=== PATIENT | female | born 1950 | race Caucasian/White ===

== ENCOUNTER → 2016-10-10 | Outpatient (CLI) | payer OTHER, MEDICARE ==
[2016-10-10 13:17] LABS: BLOOD UREA NITROGEN 28 mg/dl (7-18); BUN/CREATININE RATIO 23.6 (10-20); CALCIUM 9.6 mg/dl (8.5-10.1); CARBON DIOXIDE 29 mmol/L (21-32); CHLORIDE 103 mmol/L (98-107); GLUCOSE 119 mg/dl (70-99); POTASSIUM 3.7 mmol/L (3.5-5.1); SODIUM 142 mmol/L (136-145)
[2016-10-10 13:20] LABS: CHOLESTEROL 157 mg/dl (0-200); CHOLESTEROL/HDL RATIO 2.8; HDL CHOLESTEROL 57 mg/dl; TRIGLYCERIDES 207 mg/dl (0-150); VERY LOW DENSITY LIPOPROT CALC 41 mg/dl
[2016-10-10 13:23] LABS: ESTIMATED AVERAGE GLUCOSE 123 mg/dl; HA1C FLAG Normal (Normal)
== END | disposition home or self-care (01) ==
LOC: C.LABSPEC 12:43
PROVIDERS: ATTEND Internal Medicine
DX: Z00.00 Encounter for general adult medical examination without abnormal findings (principal); I10 Essential (primary) hypertension; E11.9 Type 2 diabetes mellitus without complications; E78.5 Hyperlipidemia, unspecified

== ENCOUNTER → 2016-10-12 | Outpatient (CLI) | payer OTHER, MEDICARE | END | disposition home or self-care (01) | LOC: C.PAPS 13:51 | PROVIDERS: ATTEND Internal Medicine | DX: Z12.4 Encounter for screening for malignant neoplasm of cervix (principal) ==

== ENCOUNTER → 2016-10-19 | Outpatient (CLI) | payer OTHER, MEDICARE ==
--- NOTE | 2016-10-19 12:43 | MAMMOGRAPHY REPORT ---
BILATERAL DIGITAL SCREENING MAMMOGRAM WITH CAD: 10/19/2016 CLINICAL HISTORY: Routine screening. Patient has no complaints. TECHNIQUE: Current study was also evaluated with a Computer Aided Detection (CAD) system. Bilatera l CC and MLO views were obtained. COMPARISON: Comparison is made to exams dated: 04/14/2015 mammogram, 04/07/2013 mammogram, 04/13/2014 m ammogram, 04/04/2012 mammogram, 04/03/2011 mammogram, and 03/30/2010 mammogram - [facility]. BREAST COMPOSITION: The tissue of both breasts is almost entirely fatty. FINDINGS: No suspicious masses, calcifications, or areas of architectural distortion are noted in e ither breast. There has been no significant interval change compared to prior exams. IMPRESSION: ACR BI-RADS CATEGORY 1: NEGATIVE There is no mammographic evidence of malignancy. A 1 year screening mammogram is recommended. The p atient will receive written notification of the results. Approximately 10% of breast cancers are not detected with mammography. A negative mammographic repor t should not delay biopsy if a clinically suggestive mass is present. Carey Batres M.D. ah/:10/19/2016 11:54:57 Night Clerk Auditor: Gabriella REEVES(Tacho)(M), [facility] letter sent: Normal 1/2 BI-RADS Code: ACR BI-RADS Category 1: Negative
== END | disposition home or self-care (01) ==
LOC: C.MAMM 10:16
PROVIDERS: ATTEND Internal Medicine
DX: Z12.31 Encounter for screening mammogram for malignant neoplasm of breast (principal)

== ENCOUNTER → 2016-10-20 | Outpatient (CLI) | payer OTHER, MEDICARE | END | disposition home or self-care (01) | LOC: C.LABSPEC 12:29 | PROVIDERS: ATTEND Internal Medicine | DX: Z12.11 Encounter for screening for malignant neoplasm of colon (principal) ==

== ENCOUNTER → 2017-02-13 | Outpatient (CLI) | payer OTHER, MEDICARE | END | disposition home or self-care (01) | LOC: C.PATHSPEC 15:22 | PROVIDERS: ATTEND Internal Medicine | DX: C44.629 Squamous cell carcinoma of skin of left upper limb, including shoulder (principal) ==

== ENCOUNTER → 2017-02-26 | Outpatient (CLI) | payer OTHER, MEDICARE | END | disposition home or self-care (01) | LOC: C.PATHSPEC 13:30 | PROVIDERS: ATTEND Internal Medicine | DX: L57.0 Actinic keratosis (principal) ==

== ENCOUNTER → 2017-04-08 | Outpatient (CLI) | payer OTHER, MEDICARE ==
[2017-04-08 13:25] LABS: BLOOD UREA NITROGEN 21 mg/dl (7-18); BUN/CREATININE RATIO 17.4 (10-20); CALCIUM 9.3 mg/dl (8.5-10.1); CARBON DIOXIDE 26 mmol/L (21-32); CHLORIDE 106 mmol/L (98-107); CHOLESTEROL 129 mg/dl (0-200); POTASSIUM 4.2 mmol/L (3.5-5.1); SODIUM 141 mmol/L (136-145)
[2017-04-08 13:31] LABS: CHOLESTEROL/HDL RATIO 2.4; ESTIMATED AVERAGE GLUCOSE 120 mg/dl; GLUCOSE 115 mg/dl (70-99); HA1C FLAG Normal (Normal); HDL CHOLESTEROL 53 mg/dl; TRIGLYCERIDES 130 mg/dl (0-150); VERY LOW DENSITY LIPOPROT CALC 26 mg/dl
== END | disposition home or self-care (01) ==
LOC: C.LABSPEC 12:25
PROVIDERS: ATTEND Internal Medicine
DX: E11.9 Type 2 diabetes mellitus without complications (principal); I10 Essential (primary) hypertension; E78.5 Hyperlipidemia, unspecified

== ENCOUNTER → 2017-06-12 | Outpatient (CLI) | payer OTHER, MEDICARE ==
[2017-06-12 19:15] LABS: BASO % 0.2 %; BASO ABS # 0.02 K/uL (0-0.2); COMPLETE YES; EOS % 0.4 %; IG% 0.2 %; LYMPH % 15.5 %; LYMPH ABS # 1.32 K/uL (1.2-3.4); MEAN CELL VOLUME 90.7 fL (80-100); MEAN CORPUSCULAR HEMOGLOBIN 30.6 pg (25-34); MEAN CORPUSCULAR HGB CONC 33.8 g/dl (32-36); MEAN PLATELET VOLUME 11.5 fL (7.4-10.4); MONO % 6.3 %; NEUT % 77.4 %; PLATELET COUNT 271 K/uL (130-400); RED BLOOD COUNT 4.08 M/uL (4.2-5.4); WHITE BLOOD COUNT 8.54 K/uL (4.8-10.8)
== END | disposition home or self-care (01) ==
LOC: C.LABSPEC 18:01
PROVIDERS: ATTEND Internal Medicine
DX: M10.9 Gout, unspecified (principal)

== ENCOUNTER → 2017-07-16 | Outpatient (CLI) | payer OTHER, MEDICARE ==
--- NOTE | 2017-07-16 15:44 | DIAGNOSTIC IMAGING REPORT ---
L FOOT MIN 3 VIEWS ROUTINE CLINICAL HISTORY: LEFT FOOT PAIN COMPARISON: None. DISCUSSION: There is a plantar calcaneal spur. There is a small spur arising from the dorsal aspect of the navicular. No acute fractures are visualized. There are degenerative changes the level the first metatarsal phalangeal joint. There is medial soft tissue swelling at the level the joint. There is mild diffuse soft tissue edema. IMPRESSION: 1. No acute fractures 2. Mild degenerative change 3. No evidence of erosive disease Electronically signed by: Zurdo Mckeon M.D. 07/16/2017 3:42 PM Dictated Date/Time: 07/16/2017 3:41 PM
== END | disposition home or self-care (01) ==
LOC: C.RAD 14:36
PROVIDERS: ATTEND Internal Medicine
DX: M19.90 Unspecified osteoarthritis, unspecified site (principal); M10.9 Gout, unspecified

== ENCOUNTER → 2017-10-18 | Outpatient (CLI) | payer OTHER, MEDICARE ==
[2017-10-18 13:43] LABS: HEMOGLOBIN A1C 5.8 % (4.5-5.6)
[2017-10-18 16:02] LABS: BLOOD UREA NITROGEN 37 mg/dl (7-18); CALCIUM 9.2 mg/dl (8.5-10.1); CARBON DIOXIDE 27 mmol/L (21-32); CHOLESTEROL 152 mg/dl (0-200); CREATININE 1.29 mg/dl (0.60-1.20); GLUCOSE 130 mg/dl (70-99); POTASSIUM 3.9 mmol/L (3.5-5.1); SODIUM 139 mmol/L (136-145)
[2017-10-18 16:05] LABS: LDL CHOLESTEROL (DIRECT) 88 mg/dl
== END | disposition home or self-care (01) ==
LOC: C.LABSPEC 12:30
PROVIDERS: ATTEND Internal Medicine
DX: Z00.00 Encounter for general adult medical examination without abnormal findings (principal); E11.9 Type 2 diabetes mellitus without complications; E78.5 Hyperlipidemia, unspecified; I10 Essential (primary) hypertension

== ENCOUNTER → 2017-10-25 | Outpatient (CLI) | payer OTHER, MEDICARE ==
--- NOTE | 2017-10-25 13:24 | MAMMOGRAPHY REPORT ---
BILATERAL DIGITAL SCREENING MAMMOGRAM TOMOSYNTHESIS WITH CAD: 10/25/2017 CLINICAL HISTORY: Routine screening. Patient has no complaints. TECHNIQUE: Breast tomosynthesis in addition to standard 2D mammography was performed. Current study was also evaluated with a Computer Aided Detection (CAD) system. COMPARISON: Comparison is made to exams dated: 10/19/2016 mammogram, 04/14/2015 mammogram, 04/13/2014 m ammogram, 04/07/2013 mammogram, 04/04/2012 mammogram, and 04/03/2011 mammogram - [facility] er. BREAST COMPOSITION: The tissue of both breasts is almost entirely fatty. FINDINGS: No suspicious masses, calcifications, or areas of architectural distortion are noted in ei ther breast. There has been no significant interval change compared to prior exams. IMPRESSION: ACR BI-RADS CATEGORY 1: NEGATIVE There is no mammographic evidence of malignancy. A 1 year screening mammogram is recommended. The pa tient will receive written notification of the results. Approximately 10% of breast cancers are not detected with mammography. A negative mammographic report should not delay biopsy if a clinically suggestive mass is present. Carey Batres M.D. /:10/25/2017 11:50:47 [employer] Cook: Bailey REEVES(Tacho)(M), [facility] letter sent: Normal 1/2 BI-RADS Code: ACR BI-RADS Category 1: Negative
== END | disposition home or self-care (01) ==
LOC: C.MAMM 08:44
PROVIDERS: ATTEND Internal Medicine
DX: Z12.31 Encounter for screening mammogram for malignant neoplasm of breast (principal)

== ENCOUNTER → 2017-10-30 | Outpatient (CLI) | payer OTHER, MEDICARE ==
[2017-11-11 13:35] LABS: FECAL OCCULT BLOOD #1 NEGATIVE (NEGATIVE); FECAL OCCULT BLOOD #2 NEGATIVE (NEGATIVE); FECAL OCCULT BLOOD #3 NEGATIVE (NEGATIVE)
== END | disposition home or self-care (01) ==
LOC: C.LABSPEC 12:47
PROVIDERS: ATTEND Internal Medicine
DX: Z12.11 Encounter for screening for malignant neoplasm of colon (principal)

== ENCOUNTER → 2018-04-18 | Outpatient (CLI) | payer OTHER, MEDICARE ==
[2018-04-18 13:19] LABS: HEMOGLOBIN A1C 6.1 % (4.5-5.6)
[2018-04-18 13:28] LABS: BLOOD UREA NITROGEN 45 mg/dl (7-18); CARBON DIOXIDE 25 mmol/L (21-32); CHOLESTEROL 149 mg/dl (0-200); GLUCOSE 121 mg/dl (70-99); LDL CHOLESTEROL (DIRECT) 82 mg/dl; POTASSIUM 3.7 mmol/L (3.5-5.1); SODIUM 140 mmol/L (136-145)
== END | disposition home or self-care (01) ==
LOC: C.LABSPEC 12:42
PROVIDERS: ATTEND Internal Medicine
DX: E11.9 Type 2 diabetes mellitus without complications (principal); I10 Essential (primary) hypertension; R78.5 Finding of other psychotropic drug in blood

== ENCOUNTER 2024-03-23 17:20 | Inpatient (IN) ==
--- NOTE | 2024-03-23 17:44 | ED Triage Note ---
Date of Service March 23, 2024 Provider in Triage Author: Juan Antonio Chacon. History of Present Illness This patient was briefly evaluated while in triage. An abbreviated physical exam was performed. This patient is a 73-year-old Female who presents to the ED for evaluation of pain redness swelling to her left lower leg and inner thigh. concerned about cellulitis. Had derm procedure on this leg 2 weeks ago. no recent car trips, no thinners, no history of dvt or PE. no fevers but doesn't feel right today. Physical Exam CONSTITUTIONAL: in no acute pain or distress, resting comfortably SKIN: pink, warm, dry RESPIRATORY: in no respiratory distress MSK: left lower leg erythematous and edematous. skin color changes to left inner thigh with tenderness Initial orders for labs and / or imaging were placed and patient was placed in the waiting area until a bed is available. Please see further documentation for the full ED course.
[2024-03-23] MEDS: ACETAMINOPHEN 500 MG TAB PO STA (18:31)
[2024-03-23 19:00] LABS: Basophils # (auto) 0.02 K/uL (0.00-0.20); Basophils % (auto) 0.2 %; Eosinophils # (auto) 0.02 K/uL (0.00-0.50); Eosinophils % (auto) 0.2 %; Hematocrit (blood only) 40.6 % (37.0-47.0); Hemoglobin 13.6 g/dl (12.0-16.0); Immature Granulocytes # (auto) 0.07 K/uL (0.01-0.20); Immature Granulocytes % (auto) 0.6 %; Lymphocytes # (auto) 1.41 K/uL (1.20-3.40); Lymphocytes % (auto) 11.6 %; Mean Corpuscular Hgb Conc 33.5 g/dL (32.0-36.0); Mean Corpuscular Volume 89.6 fL (80.0-100.0); Mean Platelet Volume 10.9 fL (9.4-12.4); Monocytes # (auto) 0.62 K/uL (0.11-0.59); Monocytes % (auto) 5.1 %; Neutrophils # (auto) 10.02 K/uL (1.40-6.50); Neutrophils % (auto) 82.3 %; Platelet Count 192 K/uL (130-400); RDW Coefficient of Variation 12.6 % (11.5-14.5); RDW Standard Deviation 41.1 fL (36.4-46.3); Red Blood Count 4.53 M/uL (4.20-5.40); White Blood Count 12.16 K/ul (4.8-10.8)
[2024-03-23 19:11] LABS: Albumin Globulin Ratio 1.1 (0.9-2); Albumin Level 4.4 gm/dl (3.4-5.0); BUN Creatinine Ratio 18.9 (10-20); Bilirubin,Total 0.7 mg/dl (0.2-1.0); Calcium 10.3 mg/dl (8.6-10.3); Creatinine Clr Calc Pharmacy 21.5 ml/min; Est GFR (African American) 23.7 ml/min; Est GFR (Non-African American) 20.5 ml/min; Potassium 4.3 mmol/L (3.5-5.1); Total Protein 8.4 gm/dl (6.0-8.3)
--- NOTE | 2024-03-23 21:24 | Emergency Department Note ---
Impression & Plan Cellulitis of left lower extremity, Acute kidney injury superimposed on CKD ED Provider Note CHIEF COMPLAINT: Rash HISTORY OF PRESENTING ILLNESS: This 73-year-old female patient presents to the emergency department with her for evaluation of pain, swelling, and a rash on the left leg. Symptoms started yesterday morning and have gotten progressively worse. The symptoms started around the ankle and now travels up to the thigh area. No symptoms of the right leg. The patient is concerned for cellulitis. She denies any fevers or chills, but states that she just does not feel right. The patient states that she did have some trouble walking last night from the swelling, but was walking OK today. The patient had dermatology work completed in the area about 2 weeks ago with previous scabs in the area. She states that some areas of squamous cell carcinoma were frozen. The patient denies recent long car or plane rides or recent injury/trauma/surgery. Denies any personal history of blood clots or bleeding disorders. Denies any family history of blood clots or bleeding disorders. Denies any hormonal medication use. Denies any hemoptysis. Denies chest pain or SOB. The patient is a diabetic. REVIEW OF SYSTEMS: See HPI for pertinent positives and pertinent negatives. ALLERGIES: Ampicillin, Penicillin MEDICATIONS: See below PAST MEDICAL HISTORY: See below PHYSICAL EXAM: VITALS: Vitals are noted on the nurse's note and reviewed by myself. GENERAL: Non toxic, no acute distress, non-diaphoretic. SKIN: The patient has significant erythema, edema, and warmth to the left lower extremity worse in the area of the foot and lower leg. However, there is a small area to the left inner thigh as well. The patient has some scabbing from her previous cryotherapy for her squamous cell carcinoma. No fluctuance, induration, pointing, or discharge. The patient is tender to palpation over this area. No erythema, edema, warmth, or concerning lesions to the right lower extremity. Capillary refill <2 sec. EYES: PERRLA. EOMI. Conjunctivae without injection, sclerae without icterus. NOSE: Patent without discharge. MOUTH: Mucous membranes moist. Uvula midline. Airway patent. NECK: Supple without nuchal rigidity. HEART: Regular rate and rhythm without murmurs gallops or rubs. LUNGS: Clear to auscultation bilaterally without wheezes, rales or rhonchi. No retractions or accessory muscle use. ABDOMEN: Positive bowel sounds x 4. Normal tympanic percussion. Soft, nontender. No masses or organomegaly. Carrion sign negative. No guarding or rebound tenderness. No focal RLQ or LLQ tenderness. MUSCULOSKELETAL: See skin exam. Peripheral pulses 2+ and equal in the bilateral lower extremities. NEURO: Patient was alert and oriented. Normal sensation to light and sharp touch of the bilateral lower extremities. No focal neurological deficits. DIFFERENTIAL DIAGNOSIS: Differential diagnosis includes cellulitis, abscess, sepsis, DVT, SVT, rhabdomyolysis, compartment syndrome, or others. ED COURSE AND MEDICAL DECISION MAKING: MEDICATIONS GIVEN: Tylenol 1000 mg p.o. 1.5 L normal saline solution bolus. Cefepime 2 g IV. Daptomycin 250 mg IV. INTERPRETATION OF LABS: I interpreted the labs with full lab results as below in the lab section of this note. White blood cell count elevated at 12.16. Hemoglobin normal at 13.6. Platelet count normal at 192. Coags were normal. Sodium 133, BUN 43, creatinine 2.28, and glucose 194. CMP otherwise without significant abnormalities. Procalcitonin elevated at 12.10, but lactate normal at 1.7. However, there was a delay in drawing the lactate compared to the procalcitonin. Blood cultures are pending. INTERPRETATION OF IMAGING: Imaging studies were interpreted by myself and read by radiology as per the imaging section of this note. Venous Doppler of the left lower extremity was negative for DVT or other acute abnormalities. CONSULTATIONS: On-call hospitalist MDM SUMMARY: The patient was seen during a time of extreme volume and extreme acuity. Nursing triage protocols were initiated with IV lock, labs, and/or imaging studies conducted by protocol in the triage area. The patient was examined by myself once they were taken back to an exam room. The patient presented with redness, swelling, and pain at the left lower extremity since yesterday. The patient states that she had areas of squamous cell carcinoma to the left lower extremity frozen by dermatology approximately 2 weeks ago. The patient had some scabbing over these areas prior to the redness and swelling starting. She has not had any fevers. She is a diabetic. At the time of my exam, the patient's white blood cell count was elevated at 12.16, her procalcitonin level is elevated at 12.10, and she appears to have a concerning cellulitis to the left lower extremity. The patient appears to have an acute on chronic renal injury as well. At the time of my exam, I ordered a lactate and blood cultures and started the patient on 1.5 L of normal saline solution. She was also given cefepime 2 g IV as well as daptomycin 250 mg IV. Venous Doppler of the left lower extremity was negative for DVT or other acute abnormalities. The patient was independently evaluated by Dr. Coffman, who agrees with my assessment and treatment plan. We feel the patient requires admission for further evaluation and treatment of her cellulitis. I spoke with the on-call hospitalist who agreed to admit the patient for further management. Please refer to their dictation for further details. The patient's care was transferred in stable condition. DIAGNOSIS: Cellulitis of left lower extremity Acute on chronic renal injury Attending Attestation: I Haresh Coffman MD independently saw and evaluated this patient and agree with history and physical is otherwise documented by the physician car rental sales assistant. See their note for full details. Cellulitic LLE with procal of 12. IV abx ordered. DVT study negative. Hospitalist to admit. Past Med/Surg History Problem List (Updated 03/24/24 @ 05:33 by Kathy Hdz PA-C) Acute kidney injury superimposed on CKD (Acute) Cellulitis of left lower extremity (Acute) Lichen sclerosus Vitamin D deficiency Hyperkalemia Hypothyroidism Gout Cystocele with prolapse Hypertension Anxiety Type 2 diabetes mellitus with chronic kidney disease, without long-term current use of insulin History of colon polyps Squamous cell carcinoma Primary hypertension Cholelithiasis Arthritis Back problem Gout High cholesterol Spinal stenosis Degenerative disc disease Cholelithiasis Stage 3a chronic kidney disease (CKD) Mixed conductive and sensorineural hearing loss of right ear with restricted hearing of left ear Medical History History of endometrial cancer History of COVID-19 Hyperlipidemia DDD (degenerative disc disease) Spinal stenosis Osteoarthritis Surgical History History of biopsy (10/24/22) History of cataract extraction with lens replacement Hx laparoscopic cholecystectomy (12/27/20) H/O squamous cell carcinoma excision History of tooth extraction H/O colonoscopy (2016) H/O thumb surgery History of hysterectomy History of tubal ligation Family History Mother Hypertension Cardiac disorder Stroke Diabetes Heart disease Myocardial infarction Brother Cancer Father Cancer Diabetes Prostate cancer Son Diabetes Denies family history of Ovarian cancer Breast cancer Lung cancer Colorectal cancer Social History Smoking Status: Never smoker Second Hand Exposure: No; Do You Dip or Chew Tobacco: No; Hx Alcohol Use: No Hx Substance Use: No Preferred Language: Slovenian Communication Ability: Effective Visual Impairment: Limited Hearing Ability: Normal Mat Man Required: No Beliefs That Will Affect Care: None marital status: Current Living Situation: Spouse current occupational status: retired How many Children do You have: 2 Feels Safe at Home: Yes Childhood Exposure to Second-Hand Smoke: No Diet: regular caffeine: Yes Dental Care, Regularly: No Physical Activity Frequency: Does not Exercise Seatbelt Use: always Sunscreen Use: Yes Assistive Devices: Denture - Upper, Denture - Lower and Glasses Allergies Allergies Allergy/AdvReac Type Severity Reaction Status Date / Time ampicillin Allergy Mild Rash Verified 03/17/24 10:21 Penicillins Allergy Mild RASH Verified 03/17/24 10:21 Home Meds Home Medications Medication Instructions Recorded Confirmed magnesium oxide 400 mg (241.3 mg 400 mg PO HS 12/16/20 03/23/24 magnesium) tablet docusate sodium 100 mg capsule 200 mg PO BID 12/19/20 03/23/24 spironolactone 25 mg tablet 25 mg PO DAILY 03/17/24 03/23/24 furosemide 20 mg tablet 20 mg PO QAM 03/23/24 03/23/24 trazodone 50 mg tablet 25 mg PO HS 03/23/24 03/23/24 Previous Rx's Medication Instructions Recorded fluorouracil 5 % topical cream 1 applic topical DAILY 4 weeks #40 02/14/23 (Efudex) grams fenofibrate nanocrystallized 48 mg 48 mg PO QAM #90 tabs 06/13/23 tablet glipizide 2.5 mg tablet, extended 2.5 mg PO DAILY #90 tabs 06/13/23 release 24 hr levothyroxine 50 mcg tablet 50 mcg PO DAILY #90 tabs 06/13/23 paroxetine HCl 10 mg tablet 10 mg PO QAM #90 tabs 09/27/23 allopurinol 100 mg tablet 100 mg PO QAM #90 tabs 01/13/24 rosuvastatin 40 mg tablet 40 mg PO HS #90 tabs 01/13/24 empagliflozin 10 mg tablet 10 mg PO DAILY #90 tabs 02/28/24 (Jardiance) clobetasol 0.05 % topical ointment 1 applic topical BID #30 grams 03/03/24 atenolol 25 mg tablet 25 mg PO BID #60 tabs 03/17/24 diltiazem HCl 360 mg capsule,24 360 mg PO DAILY #30 caps 03/17/24 hr,extended release Results & Data (ED) Vital Signs Vital Signs - 24 hr 03/23/24 17:38 03/23/24 22:26 03/23/24 22:58 Temperature 36.9 C 37.0 C Temperature Source Temporal Artery Scan Oral Pulse Rate 81 61 Pulse Rate [Apical] 63 Pulse Rhythm Regular Pulse Rhythm [Apical] Regular Pulse Strength Normal Pulse Strength [Apical] Normal Respiratory Rate 18 17 Respiratory Effort / Characteristics Non-Labored Non-Labored Spontaneous Respiratory Depth Normal Normal Respiratory Pattern Regular Regular Blood Pressure 150/75 H Blood Pressure [Right Arm] 142/57 H Blood Pressure Mean 100 Blood Pressure Mean [Right Arm] 85 Blood Pressure Position Sitting Blood Pressure Position [Right Arm] Semi-fowlers Pulse Oximetry 98 97 Oxygen Delivery Method Room Air Room Air Sepsis Recent Fever Within 48 Hours No Sepsis New/Unexplained Change in Mental Status No Sepsis Action Taken by Nursing No Action Required Laboratory Data 03/24/24 04:07 03/24/24 04:07 Lab Results 03/23/24 03/23/24 Range/Units 18:37 22:35 WBC 12.16 H (4.8-10.8) K/ul RBC 4.53 (4.20-5.40) M/uL Hgb 13.6 (12.0-16.0) g/dl Hct 40.6 (37.0-47.0) % MCV 89.6 (80.0-100.0) fL MCH 30.0 (25.0-34.0) pg MCHC 33.5 (32.0-36.0) g/dL RDW Std Deviation 41.1 (36.4-46.3) fL RDW Coeff of [place] 12.6 (11.5-14.5) % Plt Count 192 (130-400) K/uL MPV 10.9 (9.4-12.4) fL Immature Gran % (Auto) 0.6 % Neut % (Auto) 82.3 % Lymph % (Auto) 11.6 % [place] % (Auto) 5.1 % Eos % (Auto) 0.2 % Baso % (Auto) 0.2 % Neut # (Auto) 10.02 H (1.40-6.50) K/uL Lymph # (Auto) 1.41 (1.20-3.40) K/uL [place] # (Auto) 0.62 H (0.11-0.59) K/uL Eos # (Auto) 0.02 (0.00-0.50) K/uL Baso # (Auto) 0.02 (0.00-0.20) K/uL Immature Gran # (Auto) 0.07 (0.01-0.20) K/uL PT Cancelled 11.4 INR Cancelled 1.1 APTT Cancelled 31 PTT Ratio Cancelled 1.2 Sodium 133 L (136-145) mmol/L Potassium 4.3 (3.5-5.1) mmol/L Chloride 97 L (98-107) mmol/L Carbon Dioxide 25 (21-32) mmol/L Anion Gap 11 (3-11) BUN 43 H (6-23) mg/dl Creatinine 2.28 H (0.6-1.2) mg/dl Est Cr Clr Drug Dosing 21.5 ml/min Est GFR ( Amer) 23.7 ml/min Est GFR (Non-Af Amer) 20.5 ml/min BUN/Creatinine Ratio 18.9 (10-20) Glucose 194 H (70-99(Fasting)) mg/dl Lactate 1.7 (0.4-2.0) mmol/L Calcium 10.3 (8.6-10.3) mg/dl Total Bilirubin 0.7 (0.2-1.0) mg/dl AST 25 (13-39) U/L ALT 25 (7-52) U/L Alkaline Phosphatase 78 (34-104) U/L Total Protein 8.4 H (6.0-8.3) gm/dl Albumin 4.4 (3.4-5.0) gm/dl Globulin 4.0 (2.5-4.0) gm/dl Albumin/Globulin Ratio 1.1 (0.9-2) Procalcitonin 12.10 H (0-0.5) ng/ml Administered Medications Allopurinol (Allopurinol 100 Mg Tab) 100 mg PO QAM [facility] Stop: 04/23/24 08:59 Last Admin: 03/24/24 09:37 Dose: 100 mg Documented By: AM Atenolol (Atenolol 25 Mg Tablet) 25 mg PO BID TEZ Stop: 04/23/24 08:59 Last Admin: 03/24/24 09:37 Dose: 25 mg Documented By: AM Clobetasol Propionate (Clobetasol Propionate 0.05% Oint 15 Gm Tube) 1 appln EXT BID TEZ Stop: 04/23/24 08:59 Last Admin: 03/24/24 09:42 Dose: 1 appln Documented By: AM Diltiazem HCl (Diltiazem Hcl 180 Mg Capcr) 360 mg PO DAILY [facility] Stop: 04/23/24 08:59 Last Admin: 03/24/24 09:37 Dose: 360 mg Documented By: AM Docusate Sodium (Docusate Sodium 100 Mg Cap) 200 mg PO BID [facility] Stop: 04/23/24 08:59 Last Admin: 03/24/24 09:38 Dose: 200 mg Documented By: AM Fenofibrate (Fenofibrate Nanocrystallized 48 Mg Tablet) 48 mg PO QAM [facility] Stop: 04/23/24 08:59 Last Admin: 03/24/24 09:37 Dose: 48 mg Documented By: AM Glipizide (Glipizide Er 2.5 Mg Tabcr) 2.5 mg PO DAILY [facility] Stop: 04/23/24 08:59 Last Admin: 03/24/24 09:37 Dose: 2.5 mg Documented By: AM Cefepime HCl 1,000 mg/ Syringe 10 mls @ 5 mls/min IV Q12H [facility]; Protocol Stop: 03/31/24 07:59 Last Admin: 03/24/24 08:03 Dose: 5 mls/min Documented By: AM Insulin Aspart (Insulin Aspart Per Unit Charge) 0 units SC ACHS [facility] Stop: 04/23/24 07:29 Last Admin: 03/24/24 09:38 Dose: 4 units Documented By: AM Co-signed By: NICOLE Levothyroxine Sodium (Levothyroxine Sodium 50 Mcg Tablet) 50 mcg PO DAILYBB [facility] Stop: 04/23/24 06:29 Last Admin: 03/24/24 07:56 Dose: 50 mcg Documented By: AM Paroxetine HCl (Paroxetine Hcl 10 Mg Tab) 10 mg PO QAM [facility] Stop: 04/23/24 08:59 Last Admin: 03/24/24 09:38 Dose: 10 mg Documented By: AM Discontinued Medications Acetaminophen (Acetaminophen 500 Mg Tab) 1,000 mg PO NOW STA Stop: 03/23/24 17:41 Last Admin: 03/23/24 18:31 Dose: 1,000 mg Documented By: JOSE Sodium Chloride (Nss) 500 mls @ 999 mls/hr IV .Q31M ONE Stop: 03/23/24 22:02 Last Infusion: 03/24/24 03:33 Dose: Infused Documented By: Admin: 03/23/24 22:42 Dose: 999 mls/hr Documented By: PAMELA Cefepime HCl (Maxipime) 2,000 mg in 20 mls @ 5 mls/min IV NOW STA; Protocol Stop: 03/23/24 21:37 Last Admin: 03/23/24 22:43 Dose: 5 mls/min Documented By: PAMELA Daptomycin 250 mg/ Syringe 5 mls @ 2.5 mls/min IV Q24H [facility]; Protocol Stop: 03/25/24 21:44 Last Admin: 03/23/24 22:42 Dose: 2.5 mls/min Documented By: PAMELA Sodium Chloride (Nss) 1,000 mls @ 999 mls/hr IV .Q1H1M ONE Stop: 03/23/24 23:23 Last Infusion: 03/24/24 00:00 Dose: Infused Documented By: Admin: 03/23/24 22:42 Dose: 999 mls/hr Documented By: PAMELA Imaging Data Radiologist's Impression: Venous Doppler Study 03/23/24 17:40 Exam(s): US VENOUS LEFT LOWER EXTREMITY EXAM: US Duplex Left Lower Extremity Veins CLINICAL HISTORY: Reason for exam: redness swelling leg into thigh. TECHNIQUE: Real-time duplex ultrasound scan of the left lower extremity veins integrating B-mode two-dimensional vascular structure, Doppler spectral analysis, color flow Doppler imaging and compression. COMPARISON: No relevant prior studies available. FINDINGS: Deep veins: Unremarkable. No DVT in the visualized common femoral, femoral, proximal deep femoral or popliteal veins. The veins demonstrate normal color flow, are normally compressible, with normal phasic flow and/or augmentation response. Superficial veins: Unremarkable. No thrombus in the visualized great saphenous vein. Soft tissues: No acute findings. No popliteal cyst. IMPRESSION: Normal left lower extremity duplex venous ultrasound. Electronically signed by: Jan Acuna MD 03/24/24 01:12 AM Discharge Plan Visit Data Chief Complaint: Rash Stated Complaint: RASH ON LEFT LEG, PAIN, SWELLING, ED Provider: Harseh Coffman ED Midlevel Provider: Kathy Hdz Discharge Problem: Cellulitis of left lower extremity, Acute kidney injury superimposed on CKD Patient Disposition: Admitted As Inpatient Condition: Good Discharge Instructions Interventions: ED Discharge Assessment Last Done: 03/24/24 00:34
[2024-03-23] MEDS: DAPTOmycin 250 MG in SYRINGE 0 ML IV SCH (22:42)
[2024-03-23] MEDS: SODIUM CHLORIDE 0.9% 500 ML IV ONE (22:42)
[2024-03-23] MEDS: SODIUM CHLORIDE 0.9% 1,000 ML IV ONE (22:42)
[2024-03-23] MEDS: CEFEPIME 2,000 MG/20 ML VIAL IV STA (22:43)
[2024-03-23 23:24] LABS: INR 1.1 (0.9-1.1); Partial Thromboplastin Ratio 1.2; Partial Thromboplastin Time 31 Seconds (21-31); Prothrombin Time 11.4 Seconds (9.0-12.0)
--- NOTE | 2024-03-23 23:52 | History & Physical Report ---
Date of Service March 23, 2024 Assessment & Plan (1) Cellulitis of left lower extremity: (2) Hypertension: (3) Type 2 diabetes mellitus with chronic kidney disease, without long-term current use of insulin: (4) Acute kidney injury superimposed on CKD: (5) Stage 3a chronic kidney disease (CKD): Plan SIRS due to cellulitis of left lower extremity- Including involvement of foot, and groin Venous study negative for DVT Continue daptomycin 250 mg IV daily Cefepime 2 g IV every 12 hours Acetaminophen 650 mg by mouth every 6 hours as needed for mild pain or fever Keep leg elevated Acute kidney injury superimposed on CKD- Creatinine 2.28, with base range 1.39-1.7 Status post NSS 1500 mL IV fluid bolus in the ED Hold furosemide, spironolactone and Jardiance Repeat laboratories in a.m. Diabetes mellitus- Glucose 194 on admission labs Hold empagliflozin and glipizide Placed on Accu-Cheks with NovoLog SSI Hypertension- Continue atenolol, diltiazem Holding furosemide and spironolactone as noted History of Present Illness Chief Complaint: The patient presents to the emergency department with concerns regarding rapidly worsening rash on her left leg over the past 24 hours. Primary Care Provider: Joan Benavides MD The patient is a 73-year-old female with a past medical history including lichen sclerosis, vitamin D deficiency, hypothyroidism, gout, hypertension, anxiety, type 2 diabetes mellitus with CKD stage III on long-term insulin, squamous cell carcinoma, spinal stenosis, and hearing loss. The patient was encouraged to come to the emergency department by family, when she reported rapid worsening of left lower extremity redness past 24 hours. Family reports that patient appeared to be a bit confused early on in this process, and she reports significant issues with fatigue as well. She denies any recent travels or sick exposures. She denies any tick or insect bites. She has had recent treatment b y dermatology for concerning skin lesion on her left lower extremity, that are scabbed over Allergies Allergy/AdvReac Type Severity Reaction Status Date / Time ampicillin Allergy Mild Rash Verified 03/17/24 10:21 Penicillins Allergy Mild RASH Verified 03/17/24 10:21 Home Medications Medication Instructions Recorded Confirmed Type magnesium oxide 400 mg (241.3 mg 400 mg PO HS 12/16/20 03/23/24 History magnesium) tablet docusate sodium 100 mg capsule 200 mg PO BID 12/19/20 03/23/24 History fluorouracil 5 % topical cream 1 applic topical DAILY 4 weeks #40 02/14/23 03/23/24 Rx (Efudex) grams fenofibrate nanocrystallized 48 mg 48 mg PO QAM #90 tabs 06/13/23 03/23/24 Rx tablet glipizide 2.5 mg tablet, extended 2.5 mg PO DAILY #90 tabs 06/13/23 03/23/24 Rx release 24 hr levothyroxine 50 mcg tablet 50 mcg PO DAILY #90 tabs 06/13/23 03/23/24 Rx paroxetine HCl 10 mg tablet 10 mg PO QAM #90 tabs 09/27/23 03/23/24 Rx allopurinol 100 mg tablet 100 mg PO QAM #90 tabs 01/13/24 03/23/24 Rx rosuvastatin 40 mg tablet 40 mg PO HS #90 tabs 01/13/24 03/23/24 Rx empagliflozin 10 mg tablet 10 mg PO DAILY #90 tabs 02/28/24 03/23/24 Rx (Jardiance) clobetasol 0.05 % topical ointment 1 applic topical BID #30 grams 03/03/2403/23 Rx atenolol 25 mg tablet 25 mg PO BID #60 tabs 03/17/24 03/23/24 Rx diltiazem HCl 360 mg capsule,24 360 mg PO DAILY #30 caps 03/17/24 03/23/24 Rx hr,extended release spironolactone 25 mg tablet 25 mg PO DAILY 03/17/24 03/23/24 History furosemide 20 mg tablet 20 mg PO QAM 03/23/24 03/23/24 History trazodone 50 mg tablet 25 mg PO HS 03/23/24 03/23/24 History Past Med/Surg History Problem List (Updated 03/24/24 @ 03:48 by Emre Benites MD) Acute kidney injury superimposed on CKD Cellulitis of left lower extremity Lichen sclerosus Vitamin D deficiency Hyperkalemia Hypothyroidism Gout Cystocele with prolapse Hypertension Anxiety Type 2 diabetes mellitus with chronic kidney disease, without long-term current use of insulin History of colon polyps Squamous cell carcinoma Primary hypertension Cholelithiasis Arthritis Back problem Gout High cholesterol Spinal stenosis Degenerative disc disease Cholelithiasis Stage 3a chronic kidney disease (CKD) Mixed conductive and sensorineural hearing loss of right ear with restricted hearing of left ear Medical History History of endometrial cancer History of COVID-19 Hyperlipidemia DDD (degenerative disc disease) Spinal stenosis Osteoarthritis Surgical History History of biopsy (10/24/22) History of cataract extraction with lens replacement Hx laparoscopic cholecystectomy (12/27/20) H/O squamous cell carcinoma excision History of tooth extraction H/O colonoscopy (2016) H/O thumb surgery History of hysterectomy History of tubal ligation Family History Mother Hypertension Cardiac disorder Stroke Diabetes Heart disease Myocardial infarction Brother Cancer Father Cancer Diabetes Prostate cancer Son Diabetes Denies family history of Ovarian cancer Breast cancer Lung cancer Colorectal cancer Social History Smoking Status: Never smoker Second Hand Exposure: No; Do You Dip or Chew Tobacco: No; Hx Alcohol Use: No Hx Substance Use: No Preferred Language: Mauritian Communication Ability: Effective Visual Impairment: Limited Hearing Ability: Normal Dermatology Nurse Practitioner Required: No Beliefs That Will Affect Care: None marital status: Current Living Situation: Spouse current occupational status: retired How many Children do You have: 2 Feels Safe at Home: Yes Childhood Exposure to Second-Hand Smoke: No Diet: regular caffeine: Yes Dental Care, Regularly: No Physical Activity Frequency: Does not Exercise Seatbelt Use: always Sunscreen Use: Yes Assistive Devices: Denture - Upper, Denture - Lower and Glasses Review of Systems Review of Systems: The patient denies chest pain, palpitations, shortness of breath, dyspnea on exertion, cough, lower extremity swelling, sore throat, fevers, chills, sweats, nausea, vomiting, diarrhea , constipation, abdominal pain, pelvic pain, blood in urine or stool, dysuria, urinary frequency or urgency, loss of consciousness, abnormal bruising or bleeding, imbalance, focal or generalized weakness, numbness or tingling in arms or right leg, generalized arthralgias or myalgias, neck pain, or night sweats. The review of systems is otherwise negative other than for that already noted above, and at least 10 systems have been reviewed. Physical Exam Physical Exam: The patient is awake, alert and oriented 3, well developed and well nourished, normocephalic and atraumatic, lying in bed and in no acute distress. HEENT--PERRL, EOMI, mucous membranes and oropharynx mildly dry. Neck--supple. No JVD. No bruits. Thyroid normal, trachea midline, no adenopathy. Heart--normal S1 and S2. No murmurs, rubs or gallops. Lungs--clear bilaterally, no respiratory distress, no accessory muscle use. Abdomen--normal bowel sounds and soft. Nontender. Nondistended, no hernias or masses, no organomegaly. Extremities--1+ left lower extremity edema. Moderate erythema and warmth left lower extremity. Dermatologic--normal except for left leg as noted Neurologic--cranial nerves II through XII grossly intact. Rheumatologic--limited exam due to left leg infection Psychiatric--normal affect. Results & Data Results & Data Vital Signs (Past 12 Hours) Vital Signs Temp Pulse Pulse Resp BP BP Pulse Ox 03/23/24 22:58 37.0 C 63 17 142/57 H 97 03/23/24 22:26 61 03/23/24 17:38 36.9 C 81 18 150/75 H 98 O2 Del Method 03/23/24 22:58 Room Air 03/23/24 22:26 03/23/24 17:38 Room Air Laboratory Results Laboratory Results WBC 12.16 K/ul (4.8-10.8) H 03/23/24 18:37 RBC 4.53 M/uL (4.20-5.40) 03/23/24 18:37 Hgb 13.6 g/dl (12.0-16.0) 03/23/24 18:37 Hct 40.6 % (37.0-47.0) 03/23/24 18:37 MCV 89.6 fL (80.0-100.0) 03/23/24 18:37 MCH 30.0 pg (25.0-34.0) 03/23/24 18:37 MCHC 33.5 g/dL (32.0-36.0) 03/23/24 18:37 RDW Std Deviation 41.1 fL (36.4-46.3) 03/23/24 18:37 RDW Coeff of Leola 12.6 % (11.5-14.5) 03/23/24 18:37 Plt Count 192 K/uL (130-400) 03/23/24 18:37 MPV 10.9 fL (9.4-12.4) 03/23/24 18:37 Immature Gran % (Auto) 0.6 % 03/23/24 18:37 Neut % (Auto) 82.3 % 03/23/24 18:37 Lymph % (Auto) 11.6 % 03/23/24 18:37 [place] % (Auto) 5.1 % 03/23/24 18:37 Eos % (Auto) 0.2 % 03/23/24 18:37 Baso % (Auto) 0.2 % 03/23/24 18:37 Neut # (Auto) 10.02 K/uL (1.40-6.50) H 03/23/24 18:37 Lymph # (Auto) 1.41 K/uL (1.20-3.40) 03/23/24 18:37 [place]ami # (Auto) 0.62 K/uL (0.11-0.59) H 03/23/24 18:37 Eos # (Auto) 0.02 K/uL (0.00-0.50) 03/23/24 18:37 Baso # (Auto) 0.02 K/uL (0.00-0.20) 03/23/24 18:37 Immature Gran # (Auto) 0.07 K/uL (0.01-0.20) 03/23/24 18:37 PT 11.4 Seconds (9.0-12.0) 03/23/24 22:35 INR 1.1 (0.9-1.1) 03/23/24 22:35 APTT 31 Seconds (21-31) 03/23/24 22:35 PTT Ratio 1.2 03/23/24 22:35 Sodium 133 mmol/L (136-145) L 03/23/24 18:37 Potassium 4.3 mmol/L (3.5-5.1) 03/23/24 18:37 Chloride 97 mmol/L (98-107) L 03/23/24 18:37 Carbon Dioxide 25 mmol/L (21-32) 03/23/24 18:37 Anion Gap 11 (3-11) 03/23/24 18:37 BUN 43 mg/dl (6-23) H 03/23/24 18:37 Creatinine 2.28 mg/dl (0.6-1.2) H 03/23/24 18:37 Est Cr Clr Drug Dosing 21.5 ml/min 03/23/24 18:37 Est GFR ( Amer) 23.7 ml/min 03/23/24 18:37 Est GFR (Non-Af Amer) 20.5 ml/min 03/23/24 18:37 BUN/Creatinine Ratio 18.9 (10-20) 03/23/24 18:37 Glucose 194 mg/dl (70-99(Fasting)) H 03/23/24 18:37 Lactate 1.7 mmol/L (0.4-2.0) 03/23/24 22:35 Calcium 10.3 mg/dl (8.6-10.3) 03/23/24 18:37 Total Bilirubin 0.7 mg/dl (0.2-1.0) 03/23/24 18:37 AST 25 U/L (13-39) 03/23/24 18:37 ALT 25 U/L (7-52) 03/23/24 18:37 Alkaline Phosphatase 78 U/L (34-104) 03/23/24 18:37 Total Protein 8.4 gm/dl (6.0-8.3) H 03/23/24 18:37 Albumin 4.4 gm/dl (3.4-5.0) 03/23/24 18:37 Globulin 4.0 gm/dl (2.5-4.0) 03/23/24 18:37 Albumin/Globulin Ratio 1.1 (0.9-2) 03/23/24 18:37 Procalcitonin 12.10 ng/ml (0-0.5) H 03/23/24 18:37 Impressions Venous Doppler Study 03/23/24 17:40 Exam(s): US VENOUS LEFT LOWER EXTREMITY EXAM: US Duplex Left Lower Extremity Veins CLINICAL HISTORY: Reason for exam: redness swelling leg into thigh. TECHNIQUE: Real-time duplex ultrasound scan of the left lower extremity veins integrating B-mode two-dimensional vascular structure, Doppler spectral analysis, color flow Doppler imaging and compression. COMPARISON: No relevant prior studies available. FINDINGS: Deep veins: Unremarkable. No DVT in the visualized common femoral, femoral, proximal deep femoral or popliteal veins. The veins demonstrate normal color flow, are normally compressible, with normal phasic flow and/or augmentation response. Superficial veins: Unremarkable. No thrombus in the visualized great saphenous vein. Soft tissues: No acute findings. No popliteal cyst. IMPRESSION: Normal left lower extremity duplex venous ultrasound. Electronically signed by: Jan Acuna MD 03/24/24 01:12 AM Code Status & VTE Plan Code Status Full code VTE Prophylaxis Plan VTE Prophylaxis will be ordered: Yes PG Care Time/CCT Total # of Minutes Spent Total Time Spent with Patient: Total time spent is greater than 50% in coordination of care (as documented) at patient's floor/unit and/or counseling patient: Coding Level of Care Code 13515 INT INP/OBS CARE 3/75MIN Diagnoses Cellulitis of left lower extremity L03.116 Hypertension I10 Type 2 diabetes mellitus with chronic kidney disease, without long-term current use of insulin E11.22 Acute kidney injury superimposed on CKD N17.9; N18.9 Stage 3a chronic kidney disease (CKD) N18.31
[2024-03-24] MEDS ORDERED: CARBOHYDRATES FOR HYPOGLYCEMIA PO PRN (00:33)
[2024-03-24] MEDS ORDERED: DEXTROSE 50% 50 ML SYRINGE IV PRN (00:33)
[2024-03-24] MEDS ORDERED: GLUCOSE 40% GEL 15 GM TUBE PO PRN (00:33)
[2024-03-24] MEDS ORDERED: GLUCAGON FOR INJ 1 MG VIAL SQ PRN (00:33)
[2024-03-24] MEDS ORDERED: GLUCOSE 10 TAB/TUBE PO PRN (00:33)
[2024-03-24] MEDS ORDERED: ONDANSETRON INJ 2 MG/ML 2 ML VIAL IV PRN (00:33)
--- NOTE | 2024-03-24 01:13 | Ultrasound Report ---
Exam(s): US VENOUS LEFT LOWER EXTREMITY EXAM: US Duplex Left Lower Extremity Veins CLINICAL HISTORY: Reason for exam: redness swelling leg into thigh. TECHNIQUE: Real-time duplex ultrasound scan of the left lower extremity veins integrating B-mode two-dimensional vascular structure, Doppler spectral analysis, color flow Doppler imaging and compression. COMPARISON: No relevant prior studies available. FINDINGS: Deep veins: Unremarkable. No DVT in the visualized common femoral, femoral, proximal deep femoral or popliteal veins. The veins demonstrate normal color flow, are normally compressible, with normal phasic flow and/or augmentation response. Superficial veins: Unremarkable. No thrombus in the visualized great saphenous vein. Soft tissues: No acute findings. No popliteal cyst. IMPRESSION: Normal left lower extremity duplex venous ultrasound. Electronically signed by: Jan Acuna MD 03/24/24 01:12 AM
[2024-03-24 04:43] LABS: Basophils # (auto) 0.02 K/uL (0.00-0.20); Basophils % (auto) 0.2 %; Eosinophils # (auto) 0.04 K/uL (0.00-0.50); Eosinophils % (auto) 0.5 %; Hematocrit (blood only) 33.4 % (37.0-47.0); Immature Granulocytes # (auto) 0.04 K/uL (0.01-0.20); Immature Granulocytes % (auto) 0.5 %; Lymphocytes # (auto) 1.09 K/uL (1.20-3.40); Lymphocytes % (auto) 12.8 %; Mean Corpuscular Hemoglobin 30.1 pg (25.0-34.0); Mean Corpuscular Hgb Conc 32.9 g/dL (32.0-36.0); Mean Corpuscular Volume 91.5 fL (80.0-100.0); Mean Platelet Volume 10.6 fL (9.4-12.4); Monocytes # (auto) 0.36 K/uL (0.11-0.59); Monocytes % (auto) 4.2 %; Neutrophils # (auto) 6.97 K/uL (1.40-6.50); Neutrophils % (auto) 81.8 %; Platelet Count 143 K/uL (130-400); RDW Coefficient of Variation 12.6 % (11.5-14.5); RDW Standard Deviation 41.7 fL (36.4-46.3); Red Blood Count 3.65 M/uL (4.20-5.40); White Blood Count 8.52 K/ul (4.8-10.8)
[2024-03-24 04:58] LABS: Albumin Globulin Ratio 1.1 (0.9-2); Albumin Level 3.4 gm/dl (3.4-5.0); BUN Creatinine Ratio 20.7 (10-20); Bilirubin,Total 0.4 mg/dl (0.2-1.0); Calcium 9.2 mg/dl (8.6-10.3); Est GFR (African American) 25.8 ml/min; Est GFR (Non-African American) 22.2 ml/min; Globulin 3.2 gm/dl (2.5-4.0); Magnesium 2.3 mg/dl (1.7-2.4); Potassium 4.6 mmol/L (3.5-5.1); Total Protein 6.6 gm/dl (6.0-8.3)
[2024-03-24 07:34] LABS: Estimated Average Glucose 206 mg/dl; Hemoglobin A1C 8.8 % (4.5-5.6)
[2024-03-24] MEDS: LEVOTHYROXINE SODIUM 50 MCG TABLET PO SCH (07:56)
[2024-03-24] MEDS ORDERED: [UNRECOGNIZED DRUG - OTHER] SCH (08:00)
[2024-03-24] MEDS: CEFEPIME 1,000 MG in SYRINGE 0 ML IV SCH (08:03)
[2024-03-24] MEDS: dilTIAZem HCL 180 MG CAPCR PO SCH (09:37)
[2024-03-24] MEDS: glipiZIDE ER 2.5 MG TABCR PO SCH (09:37)
[2024-03-24] MEDS: FENOFIBRATE NANOCRYSTALLIZED 48 MG TABLET PO SCH (09:37)
[2024-03-24] MEDS: allopurinoL 100 MG TAB PO SCH (09:37)
[2024-03-24] MEDS: ATENOLOL 25 MG TABLET PO SCH (09:37)
[2024-03-24] MEDS: PARoxetine HCL 10 MG TAB PO SCH (09:38)
[2024-03-24] MEDS: DOCUSATE SODIUM 100 MG CAP PO SCH (09:38)
[2024-03-24] MEDS: INSULIN ASPART PER UNIT CHARGE SC SCH (09:38)
[2024-03-24] MEDS: CLOBETASOL PROPIONATE 0.05% OINT 15 GM TUBE EXT SCH (09:42)
--- NOTE | 2024-03-24 14:20 | Hospitalist Progress Note ---
Date of Service March 24, 2024 Assessment & Plan (1) Cellulitis of left lower extremity: Plan: Diabetic cellulitis of the left lower extremity Cellulitis of the lower extremity, with elevated PCT and associated CHUCK on CKD Continue daptomycin/cefepime Doppler negative for DVT Initial procalcitonin was 12. Blood cultures are pending no growth to date, hemodynamically stable at time of bedside assessment 03/24 (2) Acute kidney injury superimposed on CKD: Plan: CHUCK on CKD In the setting of an acute infection and volume contrast Baseline creatinine appears approximately 1.441.8 Admitting creatinine 2.28, downtrending and at 2.13 on 03/24 Renally dose medications (3) Hypertension: Plan: Hypertension Asymptomatic at time of bedside visit, but remains hypertensive 170-180s. rising in the afternoon. Lasix and spironolactone have been held for CHUCK which is improving Atenolol, diltiazem continued - hydralazine 10mg BID3 times daily added while patient had as her Lasix and spironolactone held, with hypertension in 1 90s asymptomatic. Amlodipine deferred due to potential for leg swelling. (4) Type 2 diabetes mellitus with chronic kidney disease, without long-term current use of insulin: Plan: DM2 Hold oral antiglycemic's Goal BSG [id number] Basal bolus while inpatient. AM BSG 250. Lantus 5 mg daily added while inpatient. (5) Stage 3a chronic kidney disease (CKD): Admission and Anticipated Discharge Date Admission Date: March 23, 2024 Christa Campbell seen at the bedside. She reports that she feels okay this morning. She is not sure if her leg looks any better as she has not looked at it, but is not hurting her at moment of exam and is covered with the blankets. Pleasant, cooperative. Denies tremors/shaking chills but notes that she felt very cold overnight. Otherwise no questions/concerns at bedside. Physical Exam Physical Exam: General: A&Ox3. NAD. Cooperative. HEENT: Atraumatic, normocephalic. Pulm: CTAB A&P. -wheezes, -rales, -rhonchi. Symmetrical chest rise. No increased work of breathing. No respiratory distress. Cardiac: RRR, -mrg. Radial pulses intact and symmetrical. Abdominal: Nontender, nondistended, soft. BS present. Extremities: Left lower extremity with pitting edema, warmth, erythema. It is minimally tender to the touch. Results & Data Results & Data Vital Signs (Past 12 Hours) Vital Signs Pulse Pulse Resp BP BP Pulse Ox Pulse Ox 03/24/24 12:09 71 14 185/83 H 97 03/24/24 10:06 75 18 94 03/24/24 09:50 79 03/24/24 08:15 79 22 95 03/24/24 08:00 176/74 H 03/24/24 08:00 176/74 H 03/24/24 08:00 176/74 H 03/24/24 08:00 176/74 H 03/24/24 08:00 176/74 H 03/24/24 08:00 176/74 H 03/24/24 08:00 176/74 H 03/24/24 08:00 176/74 H 03/24/24 08:00 176/74 H 03/24/24 08:00 176/74 H 03/24/24 08:00 176/74 H 03/24/24 08:00 176/74 H 03/24/24 08:00 176/74 H 03/24/24 08:00 176/74 H 03/24/24 08:00 176/74 H 03/24/24 08:00 176/74 H 03/24/24 08:00 176/74 H 03/24/24 08:00 176/74 H 03/24/24 08:00 176/74 H 03/24/24 08:00 176/74 H 03/24/24 08:00 176/74 H 03/24/24 08:00 176/74 H 03/24/24 08:00 176/74 H 03/24/24 08:00 176/74 H 03/24/24 08:00 176/74 H 03/24/24 08:00 176/74 H 03/24/24 08:00 176/74 H 03/24/24 07:57 58 L 13 97 03/24/24 07:33 77 20 98 03/24/24 05:35 65 22 154/66 H 95 03/24/24 05:34 96 03/24/24 02:13 64 23 147/61 H 96 O2 Del Method O2 Del Method 03/24/24 12:09 03/24/24 10:06 03/24/24 09:50 03/24/24 08:15 03/24/24 08:00 03/24/24 08:00 03/24/24 08:00 03/24/24 08:00 03/24/24 08:00 03/24/24 08:00 03/24/24 08:00 03/24/24 08:00 03/24/24 08:00 03/24/24 08:00 03/24/24 08:00 03/24/24 08:00 03/24/24 08:00 03/24/24 08:00 03/24/24 08:00 03/24/24 08:00 03/24/24 08:00 03/24/24 08:00 03/24/24 08:00 03/24/24 08:00 03/24/24 08:00 03/24/24 08:00 03/24/24 08:00 03/24/24 08:00 03/24/24 08:00 03/24/24 08:00 03/24/24 08:00 03/24/24 07:57 03/24/24 07:33 03/24/24 05:35 Room Air 03/24/24 05:34 Room Air 03/24/24 02:13 Room Air PG Care Time/CCT Total # of Minutes Spent Total Time Spent with Patient: Total time spent is greater than 50% in coordination of care (as documented) at patient's floor/unit and/or counseling patient: Coding Level of Care Code 90787 SUB INP/OBS CARE 3/50MIN Diagnoses Cellulitis of left lower extremity L03.116 Acute kidney injury superimposed on CKD N17.9; N18.9 Hypertension I10 Type 2 diabetes mellitus with chronic kidney disease, without long-term current use of insulin E11.22 Stage 3a chronic kidney disease (CKD) N18.31
[2024-03-24] MEDS: hydrALAZINE 10 MG TAB PO ONE (15:12)
[2024-03-24] MEDS: LANTUS PER UNIT CHARGE SQ SCH (15:13)
[2024-03-24] MEDS: MAGNESIUM OXIDE 400 MG TAB PO SCH (19:45)
[2024-03-24] MEDS: traZODone HCL 50 MG TAB PO SCH (19:46)
[2024-03-24] MEDS: ROSUVASTATIN CALCIUM 20 MG TAB PO SCH (19:46)
[2024-03-24] MEDS ORDERED: hydrALAZINE 10 MG TAB PO SCH (21:00)
--- NOTE | 2024-03-25 07:56 | Hospitalist Progress Note ---
Date of Service March 25, 2024 Assessment & Plan (1) Cellulitis of left lower extremity: Plan: Diabetic cellulitis of the left lower extremity, suspected 2nd to recent procedure/cryotherapy to lesions on her legs -- Outpt Derm note 03/06 noting 6 lesions treated with liquid nitrogen and advised to wash and apply vaseline to sites until healed.(has outpt excision scheduled for melanoma in situ on her right superior shoulder per discussion w/ Dr Perez today) LLE Cellulitis Elevated WBC 12k w/ procal to 12 on admission, also with CHUCK w/ Rn Icu 2.28 (baseline 1.4-1.8, follows Dr Yates) Venous doppler NEGATIVE for DVT Dapto/Cefepime IV continued --Crestor placed on hold while on Dapto WBC normalized, afebrile Blood cultures NO GROWTH TO DATE, monitor s/p 1500cc IVF on admission - lasix/spironolactone continue to be on HOLD (did NOT increase her spironolactone recently to 50mg to note, did have diltizem increased to 360mg/amlodipine discontinued, denies hx CHF/taking for edema and diuretics likely not best for her given increased risk for dehydration in elderly patient w/o hx CHF) --Cr improved to 1.79, will avoid further IVF for now given improvement in renal function Wound RN consulted, also noting patient w/ hx AK/melanoma, follows w/ Dr Stanford Will see about auto damage adjuster to assist w/ arranging MD f/u at dc (patient would like Dr Benavides if possible, has appt moved up from fall but will need post-hospital dc f/u) Monitor labs/exam on repeat, PT eval placed while inpatient to monitor for any needs (2) Acute kidney injury superimposed on CKD: Plan: CHUCK on CKD in setting of infection with Cr 2.28 --> 2.13 on repeat following IVF on admission Is on lasix/spironolactone at baseline as above, did NOT increase her spironolactone as discussed and CONTINUE TO HOLD Renal dose meds/avoid nephrotoxins BUN/Cr improved to 38/1.73 on chemistries BMP in AM (3) Hypertension: Plan: Hypertension, has been varying as outpatient Recent rx for both amlodipine and diltiazem and amlodipine was discontinued lasix 20mg daily, spironolactone 25mg ON HOLD due to CHUCK as above Continues on atenolol BID, diltiazem 360mg Had been placed on hydralazine 10mg TID while home meds on hold but improvement in BPs and changed to IV prn Discussed w/ patient to obtain BP cuff at home and take to PCP office and monitor at home at discharge BP 187/77 at present in hospital setting and will avoid overtreatment in hospital setting but did discuss if needing additional agent, likely hydralazine preferred given her CKD/avoiding diuretics in elderly female prone to dehydration (4) Type 2 diabetes mellitus with chronic kidney disease, without long-term current use of insulin: Plan: DM2 Placed home glipizide on hold for now while inpatient BSG AC/HS, tightened SSI and discontinued lantus 5u daily per supervising provider as insulin naive and will monitor Most recent POC 167 (5) Stage 3a chronic kidney disease (CKD): Plan: as above, improving w/ holding diuretics Plan continued inpatient stay Admission and Anticipated Discharge Date Admission Date: March 23, 2024 Supervising Physician Co-Signing Physician Notes The patient was not seen by me. The chart was reviewed. Case discussed with GARRY Pablo. Agree with assessment and plan Subjective Eval closer to lunch, sitting up in bed upon entry, no acute distress on the phone. Reports the redness is improved. Urine clearer yellow in color, tolerating PO intake. Discussed recent medication changes, she did have some skepticism with her most recent primary care provider and reports issues w/ CCB x 2 rx and then increased spironolactone and reports she routinely sees Dr Yates. Discussed BPs, she reports were elevated at the office but she was discussing multiple things/stressful situation but at her f/u appt w/ gynecology she had great BP, systolic 130s. Encouraged getting home cuff and taking to office to verify accurate readings and keeping log at home as would avoid aggressive BP management in hospital setting but could consider hydalazine. No fever/chills, chest pain, shortness of breath. Does have multiple prior blisters to her skin on her LE, had prior seen derm/frozen and sent for biopsy. Discussed could have been source for her cellulitis w/ breaks in skin, will consult wound RN. Physical Exam Physical Exam: General: 73yo female sitting up in bed, NAD HEENT: head atraumatic, normocephalic, mmm Resp:even/unlabored, w/c/r, on room air 100% CV: RRR, faint systolic murmur, LLE edema from cellulitis GI: +BS, soft/NT : no hanna MSK/Neuro/skin: nonfocal, no slurred speech, answering questions appropriately LLE w/ cellulitis, reports improvement, decreased warmth/edema several lesions, c/w AK, hx melanoma, recent cryotherapy on multiple lesions w/ dermatology outpatient Psych: AOx3, pleasant/cooperative with exam Results & Data Results & Data Vital Signs (Past 12 Hours) Vital Signs Temp Pulse Pulse Resp BP Pulse Ox Pulse Ox 03/25/24 05:59 59 L 03/25/24 05:00 95 03/25/24 04:00 36.6 C 70 18 133/68 95 03/24/24 23:00 37.2 C 69 18 155/73 H 96 03/24/24 21:58 63 O2 Del Method O2 Del Method 03/25/24 05:59 03/25/24 05:00 Room Air 03/25/24 04:00 Room Air 03/24/24 23:00 Room Air 03/24/24 21:58 Laboratory Results 03/25/24 03/25/24 03/25/24 Range/Units 11:52 08:02 07:43 WBC 6.93 (4.8-10.8) K/ul RBC 3.63 L (4.20-5.40) M/uL Hgb 11.0 L (12.0-16.0) g/dl Hct 32.4 L (37.0-47.0) % MCV 89.3 (80.0-100.0) fL MCH 30.3 (25.0-34.0) pg MCHC 34.0 (32.0-36.0) g/dL RDW Std Deviation 41.0 (36.4-46.3) fL RDW Coeff of [place] 12.5 (11.5-14.5) % Plt Count 169 (130-400) K/uL MPV 10.8 (9.4-12.4) fL Immature Gran % (Auto) 0.4 % Neut % (Auto) 75.3 % Lymph % (Auto) 16.9 % [place] % (Auto) 6.1 % Eos % (Auto) 1.2 % Baso % (Auto) 0.1 % Neut # (Auto) 5.22 (1.40-6.50) K/uL Lymph # (Auto) 1.17 L (1.20-3.40) K/uL [place] # (Auto) 0.42 (0.11-0.59) K/uL Eos # (Auto) 0.08 (0.00-0.50) K/uL Baso # (Auto) 0.01 (0.00-0.20) K/uL Immature Gran # (Auto) 0.03 (0.01-0.20) K/uL Sodium 138 (136-145) mmol/L Potassium 4.0 (3.5-5.1) mmol/L Chloride 106 (98-107) mmol/L Carbon Dioxide 23 (21-32) mmol/L Anion Gap 9 (3-11) BUN 38 H (6-23) mg/dl Creatinine 1.73 H D (0.6-1.2) mg/dl Est Cr Clr Drug Dosing 28.6 ml/min Est GFR ( Amer) 33.1 ml/min Est GFR (Non-Af Amer) 28.6 ml/min BUN/Creatinine Ratio 22.0 H (10-20) Glucose 164 H (70-99(Fasting)) mg/dl POC Glucose 167 H 166 H (70-99) mg/dl Calcium 9.6 (8.6-10.3) mg/dl Magnesium 2.2 (1.7-2.4) mg/dl Total Bilirubin 0.4 (0.2-1.0) mg/dl AST 15 (13-39) U/L ALT 15 (7-52) U/L Alkaline Phosphatase 63 (34-104) U/L Total Protein 7.2 (6.0-8.3) gm/dl Albumin 3.4 (3.4-5.0) gm/dl Globulin 3.8 (2.5-4.0) gm/dl Albumin/Globulin Ratio 0.9 (0.9-2) 03/24/24 03/24/24 Range/Units 20:16 16:26 WBC (4.8-10.8) K/ul RBC (4.20-5.40) M/uL Hgb (12.0-16.0) g/dl Hct (37.0-47.0) % MCV (80.0-100.0) fL MCH (25.0-34.0) pg MCHC (32.0-36.0) g/dL RDW Std Deviation (36.4-46.3) fL RDW Coeff of [place] (11.5-14.5) % Plt Count (130-400) K/uL MPV (9.4-12.4) fL Immature Gran % (Auto) % Neut % (Auto) % Lymph % (Auto) % [place] % (Auto) % Eos % (Auto) % Baso % (Auto) % Neut # (Auto) (1.40-6.50) K/uL Lymph # (Auto) (1.20-3.40) K/uL [place] # (Auto) (0.11-0.59) K/uL Eos # (Auto) (0.00-0.50) K/uL Baso # (Auto) (0.00-0.20) K/uL Immature Gran # (Auto) (0.01-0.20) K/uL Sodium (136-145) mmol/L Potassium (3.5-5.1) mmol/L Chloride (98-107) mmol/L Carbon Dioxide (21-32) mmol/L Anion Gap (3-11) BUN (6-23) mg/dl Creatinine (0.6-1.2) mg/dl Est Cr Clr Drug Dosing ml/min Est GFR ( Amer) ml/min Est GFR (Non-Af Amer) ml/min BUN/Creatinine Ratio (10-20) Glucose (70-99(Fasting)) mg/dl POC Glucose 207 H 225 H (70-99) mg/dl Calcium (8.6-10.3) mg/dl Magnesium (1.7-2.4) mg/dl Total Bilirubin (0.2-1.0) mg/dl AST (13-39) U/L ALT (7-52) U/L Alkaline Phosphatase (34-104) U/L Total Protein (6.0-8.3) gm/dl Albumin (3.4-5.0) gm/dl Globulin (2.5-4.0) gm/dl Albumin/Globulin Ratio (0.9-2) Diagnostic Findings Venous Doppler Study 06/24/24 17:40 Exam(s): US VENOUS LEFT LOWER EXTREMITY EXAM: US Duplex Left Lower Extremity Veins CLINICAL HISTORY: Reason for exam: redness swelling leg into thigh. TECHNIQUE: Real-time duplex ultrasound scan of the left lower extremity veins integrating B-mode two-dimensional vascular structure, Doppler spectral analysis, color flow Doppler imaging and compression. COMPARISON: No relevant prior studies available. FINDINGS: Deep veins: Unremarkable. No DVT in the visualized common femoral, femoral, proximal deep femoral or popliteal veins. The veins demonstrate normal color flow, are normally compressible, with normal phasic flow and/or augmentation response. Superficial veins: Unremarkable. No thrombus in the visualized great saphenous vein. Soft tissues: No acute findings. No popliteal cyst. IMPRESSION: Normal left lower extremity duplex venous ultrasound. Electronically signed by: Jan Acuna MD 03/24/24 01:12 AM PG Care Time/CCT Total # of Minutes Spent Total Time Spent with Patient: Total time spent is greater than 50% in coordination of care (as documented) at patient's floor/unit and/or counseling patient: Coding Level of Care Code 26365 SUB INP/OBS CARE 3/50MIN Diagnoses Cellulitis of left lower extremity L03.116 Acute kidney injury superimposed on CKD N17.9; N18.9 Hypertension I10 Type 2 diabetes mellitus with chronic kidney disease, without long-term current use of insulin E11.22 Stage 3a chronic kidney disease (CKD) N18.31
[2024-03-25 08:16] LABS: Basophils # (auto) 0.01 K/uL (0.00-0.20); Basophils % (auto) 0.1 %; Eosinophils # (auto) 0.08 K/uL (0.00-0.50); Eosinophils % (auto) 1.2 %; Hematocrit (blood only) 32.4 % (37.0-47.0); Immature Granulocytes # (auto) 0.03 K/uL (0.01-0.20); Immature Granulocytes % (auto) 0.4 %; Lymphocytes # (auto) 1.17 K/uL (1.20-3.40); Lymphocytes % (auto) 16.9 %; Mean Corpuscular Hemoglobin 30.3 pg (25.0-34.0); Mean Corpuscular Volume 89.3 fL (80.0-100.0); Mean Platelet Volume 10.8 fL (9.4-12.4); Monocytes # (auto) 0.42 K/uL (0.11-0.59); Monocytes % (auto) 6.1 %; Neutrophils # (auto) 5.22 K/uL (1.40-6.50); Neutrophils % (auto) 75.3 %; Platelet Count 169 K/uL (130-400); RDW Coefficient of Variation 12.5 % (11.5-14.5); Red Blood Count 3.63 M/uL (4.20-5.40); White Blood Count 6.93 K/ul (4.8-10.8)
[2024-03-25 08:39] LABS: Albumin Globulin Ratio 0.9 (0.9-2); Albumin Level 3.4 gm/dl (3.4-5.0); Bilirubin,Total 0.4 mg/dl (0.2-1.0); Calcium 9.6 mg/dl (8.6-10.3); Creatinine Clr Calc Pharmacy 28.6 ml/min; Est GFR (African American) 33.1 ml/min; Est GFR (Non-African American) 28.6 ml/min; Globulin 3.8 gm/dl (2.5-4.0); Magnesium 2.2 mg/dl (1.7-2.4); Total Protein 7.2 gm/dl (6.0-8.3)
[2024-03-25] MEDS: DAPTOmycin 250 MG in SYRINGE 0 ML IV SCH (22:11)
[2024-03-25] MEDS: hydrALAZINE HCL 20 MG/ML VIAL IV PRN (23:51)
[2024-03-26 06:03] LABS: Albumin Globulin Ratio 0.9 (0.9-2); Albumin Level 3.5 gm/dl (3.4-5.0); BUN Creatinine Ratio 26.3 (10-20); Basophils # (auto) 0.01 K/uL (0.00-0.20); Basophils % (auto) 0.1 %; Bilirubin,Total 0.4 mg/dl (0.2-1.0); Calcium 9.7 mg/dl (8.6-10.3); Creatinine Clr Calc Pharmacy 32.6 ml/min; Eosinophils # (auto) 0.08 K/uL (0.00-0.50); Eosinophils % (auto) 1.2 %; Est GFR (African American) 38.7 ml/min; Est GFR (Non-African American) 33.4 ml/min; Globulin 3.7 gm/dl (2.5-4.0); Hematocrit (blood only) 34.1 % (37.0-47.0); Hemoglobin 11.2 g/dl (12.0-16.0); Immature Granulocytes # (auto) 0.03 K/uL (0.01-0.20); Immature Granulocytes % (auto) 0.4 %; Lymphocytes # (auto) 1.39 K/uL (1.20-3.40); Lymphocytes % (auto) 20.5 %; Magnesium 2.1 mg/dl (1.7-2.4); Mean Corpuscular Hemoglobin 29.5 pg (25.0-34.0); Mean Corpuscular Hgb Conc 32.8 g/dL (32.0-36.0); Mean Corpuscular Volume 89.7 fL (80.0-100.0); Mean Platelet Volume 10.5 fL (9.4-12.4); Monocytes # (auto) 0.54 K/uL (0.11-0.59); Neutrophils # (auto) 4.74 K/uL (1.40-6.50); Neutrophils % (auto) 69.8 %; Platelet Count 192 K/uL (130-400); RDW Coefficient of Variation 12.4 % (11.5-14.5); RDW Standard Deviation 40.3 fL (36.4-46.3); Total Protein 7.2 gm/dl (6.0-8.3); White Blood Count 6.79 K/ul (4.8-10.8)
--- NOTE | 2024-03-26 08:04 | Hospitalist Progress Note ---
Date of Service March 26, 2024 Assessment & Plan (1) Cellulitis of left lower extremity: Plan: Diabetic cellulitis of the left lower extremity, suspected 2nd to recent procedure/cryotherapy to lesions on her legs -- Outpt Derm note 03/06 noting 6 lesions treated with liquid nitrogen and advised to wash and apply vaseline to sites until healed.(has outpt excision scheduled for melanoma in situ on her right superior shoulder per discussion w/ Dr Perez today) LLE Cellulitis Elevated WBC 12k w/ procal to 12 on admission, also with CHUCK w/ Diesel Bus Mechanic 2.28 (baseline 1.4-1.8, follows Dr Yates) Venous doppler NEGATIVE for DVT Dapto/Cefepime IV continued (statin placed on hold) s/p 1500cc IVF on admission, lasix/spirnolactone placed on hold WBC normalized, afebrile Blood cultures NGTD Cr improved to 1.52, lasix 20mg PO resumed to help w/ swelling/edema as well Wound RN consulted. screwhead polisher to see about appt Dr Benavides in f/u at [place] [facility] to dc in AM on PO abx, Bactrim/Keflex vs Clinda/Doxy given hx DM. No hx MRSA so could opt for more pseudomonal coverage if desired. Allergy to PCN w/ rash (2) Acute kidney injury superimposed on CKD: Plan: Cr 2.28, CHUCK on CKD in setting of infection (Cr baseline 1.4-1.8, follows Dr Yates) IVF on admission, no further ordered and Cr to 1.52 w/ home lasix/spirnolactone on hold but resuming lasix as above to assist w/ edema/swelling and will monitor renal function in AM to see about resuming home spironolactone Renal dose meds/avoid nephrotoxins as able (3) Hypertension: Plan: Hypertension, has been varying as outpatient Recent rx for both amlodipine and diltiazem and amlodipine was discontinued lasix 20mg daily, spironolactone 25mg ON HOLD due to CHUCK as above Lasix 20mg PO daily resumed AM 03/26 -plan to resume spironolactone at 25mg in AM if stable renal function Hydralazine available prn Encouraged BP cuff at home/monitoring as prior discussed. If needing increased BP control as outpt, rec consideration to use hydralazine PO given CKD Monitor (4) Type 2 diabetes mellitus with chronic kidney disease, without long-term current use of insulin: Plan: DM2 Placed home glipizide on hold for now while inpatient BSG AC/HS, SSI while inpatient Dc lantus, tightened SSI and will monitor, most recent POC 191 (5) Stage 3a chronic kidney disease (CKD): Plan: as above, improving w/ holding diuretics and lasix to be resumed as above/monitor for spinorolactone (6) Melanoma in situ: Plan: has outpt f/u for exicion R shoulder per discussion w/ Dr Perez next month Plan continued inpatient stay, hopeful dc AM 03/27 Admission and Anticipated Discharge Date Admission Date: March 23, 2024 Supervising Physician Co-Signing Physician Notes The patient was not seen by me. The chart was reviewed. Case discussed with GARRY Pablo. Agree with assessment and plan Subjective Eval this afternoon, in bed on the phone, in room. Redness/erythema/warmth improved. WBC wnl, afebrile. Blood cultures NGTD. Renal function improved/back to baseline, home lasix resumed but holding spironolactone for now and possible resume in AM pending labs. Discussed monitoring overnight and if continued improvement will plan for dc in AM. No CP/SOB, abdominal pain reported. Physical Exam Physical Exam: General: 73yo female sitting up in bed, NAD, on the phone, in room HEENT: head atraumatic, normocephalic, mmm Resp:even/unlabored, w/c/r, on room air CV: RRR, faint systolic murmur, LLE edema from cellulitis IMPROVING GI: +BS, soft/NT : no hanna MSK/Neuro/skin: nonfocal, no slurred speech, answering questions appropriately LLE w/ cellulitis-- IMPROVING, less erythema/warmth several lesions, c/w AK, hx melanoma, recent cryotherapy on multiple lesions w/ dermatology outpatient Psych: AOx3, pleasant/cooperative with exam Results & Data Results & Data Vital Signs (Past 12 Hours) Vital Signs Temp Pulse Pulse Resp BP Pulse Ox O2 Del Method 03/26/24 03:39 37 C 66 14 173/72 H 92 Room Air 06/27/24 00:00 59 L 03/25/24 22:00 36.7 C 64 16 184/68 H 97 Room Air 03/25/24 20:00 36.6 C 67 16 174/86 H 98 Room Air Laboratory Results 03/26/24 03/26/24 03/26/24 Range/Units 12:11 07:44 05:30 WBC 6.79 (4.8-10.8) K/ul RBC 3.80 L (4.20-5.40) M/uL Hgb 11.2 L (12.0-16.0) g/dl Hct 34.1 L (37.0-47.0) % MCV 89.7 (80.0-100.0) fL MCH 29.5 (25.0-34.0) pg MCHC 32.8 (32.0-36.0) g/dL RDW Std Deviation 40.3 (36.4-46.3) fL RDW Coeff of [place] 12.4 (11.5-14.5) % Plt Count 192 (130-400) K/uL MPV 10.5 (9.4-12.4) fL Immature Gran % (Auto) 0.4 % Neut % (Auto) 69.8 % Lymph % (Auto) 20.5 % [place] % (Auto) 8.0 % Eos % (Auto) 1.2 % Baso % (Auto) 0.1 % Neut # (Auto) 4.74 (1.40-6.50) K/uL Lymph # (Auto) 1.39 (1.20-3.40) K/uL [place] # (Auto) 0.54 (0.11-0.59) K/uL Eos # (Auto) 0.08 (0.00-0.50) K/uL Baso # (Auto) 0.01 (0.00-0.20) K/uL Immature Gran # (Auto) 0.03 (0.01-0.20) K/uL Sodium 137 (136-145) mmol/L Potassium 4.0 (3.5-5.1) mmol/L Chloride 107 (98-107) mmol/L Carbon Dioxide 23 (21-32) mmol/L Anion Gap 7 (3-11) BUN 40 H (6-23) mg/dl Creatinine 1.52 H (0.6-1.2) mg/dl Est Cr Clr Drug Dosing 32.6 ml/min Est GFR ( Amer) 38.7 ml/min Est GFR (Non-Af Amer) 33.4 ml/min BUN/Creatinine Ratio 26.3 H (10-20) Glucose 156 H (70-99(Fasting)) mg/dl POC Glucose 191 H 155 H (70-99) mg/dl Calcium 9.7 (8.6-10.3) mg/dl Magnesium 2.1 (1.7-2.4) mg/dl Total Bilirubin 0.4 (0.2-1.0) mg/dl AST 15 (13-39) U/L ALT 14 (7-52) U/L Alkaline Phosphatase 62 (34-104) U/L Total Protein 7.2 (6.0-8.3) gm/dl Albumin 3.5 (3.4-5.0) gm/dl Globulin 3.7 (2.5-4.0) gm/dl Albumin/Globulin Ratio 0.9 (0.9-2) 03/25/24 03/25/24 Range/Units 20:15 16:49 WBC (4.8-10.8) K/ul RBC (4.20-5.40) M/uL Hgb (12.0-16.0) g/dl Hct (37.0-47.0) % MCV (80.0-100.0) fL MCH (25.0-34.0) pg MCHC (32.0-36.0) g/dL RDW Std Deviation (36.4-46.3) fL RDW Coeff of [place] (11.5-14.5) % Plt Count (130-400) K/uL MPV (9.4-12.4) fL Immature Gran % (Auto) % Neut % (Auto) % Lymph % (Auto) % [place] % (Auto) % Eos % (Auto) % Baso % (Auto) % Neut # (Auto) (1.40-6.50) K/uL Lymph # (Auto) (1.20-3.40) K/uL [place] # (Auto) (0.11-0.59) K/uL Eos # (Auto) (0.00-0.50) K/uL Baso # (Auto) (0.00-0.20) K/uL Immature Gran # (Auto) (0.01-0.20) K/uL Sodium (136-145) mmol/L Potassium (3.5-5.1) mmol/L Chloride (98-107) mmol/L Carbon Dioxide (21-32) mmol/L Anion Gap (3-11) BUN (6-23) mg/dl Creatinine (0.6-1.2) mg/dl Est Cr Clr Drug Dosing ml/min Est GFR ( Amer) ml/min Est GFR (Non-Af Amer) ml/min BUN/Creatinine Ratio (10-20) Glucose (70-99(Fasting)) mg/dl POC Glucose 207 H 112 H (70-99) mg/dl Calcium (8.6-10.3) mg/dl Magnesium (1.7-2.4) mg/dl Total Bilirubin (0.2-1.0) mg/dl AST (13-39) U/L ALT (7-52) U/L Alkaline Phosphatase (34-104) U/L Total Protein (6.0-8.3) gm/dl Albumin (3.4-5.0) gm/dl Globulin (2.5-4.0) gm/dl Albumin/Globulin Ratio (0.9-2) PG Care Time/CCT Total # of Minutes Spent Total Time Spent with Patient: Total time spent is greater than 50% in coordination of care (as documented) at patient's floor/unit and/or counseling patient: Coding Level of Care Code 98346 SUB INP/OBS CARE 3/50MIN Diagnoses Cellulitis of left lower extremity L03.116 Acute kidney injury superimposed on CKD N17.9; N18.9 Hypertension I10 Type 2 diabetes mellitus with chronic kidney disease, without long-term current use of insulin E11.22 Stage 3a chronic kidney disease (CKD) N18.31 Melanoma in situ D03.9
[2024-03-26] MEDS: FUROSEMIDE 20 MG TAB PO SCH (11:17)
[2024-03-26] MEDS: EMPAGLIFLOZIN 10 MG TAB PO SCH (20:41)
[2024-03-26] MEDS: CEFEPIME 2,000 MG in SYRINGE 0 ML IV SCH (20:41)
[2024-03-26] MEDS: DAPTOmycin 250 MG in SYRINGE 0 ML IV SCH (22:25)
--- NOTE | 2024-03-27 07:58 | Hospitalist Progress Note ---
Date of Service March 27, 2024 Assessment & Plan (1) Cellulitis of left lower extremity: Plan: Diabetic cellulitis of the left lower extremity, suspected 2nd to recent procedure/cryotherapy to lesions on her legs -- Outpt Derm note 03/06 noting 6 lesions treated with liquid nitrogen and advised to wash and apply vaseline to sites until healed.(has outpt excision scheduled for melanoma in situ on her right superior shoulder per discussion w/ Dr Perez today) LLE Cellulitis Elevated WBC 12k w/ procal to 12 on admission, also with CHUCK w/ Insurance Claims Analyst 2.28 (baseline 1.4-1.8, follows Dr Yates) Venous doppler NEGATIVE for DVT Dapto/Cefepime IV continued (statin placed on hold) s/p 1500cc IVF on admission, lasix/spirnolactone placed on hold WBC normalized, afebrile Blood cultures NGTD Cr improved to 1.52, lasix 20mg PO resumed to help w/ swelling/edema as well Wound RN consulted. auto headlight mechanic to see about appt Dr Benavides in f/u at [place] [facility] to dc in AM on PO abx, Bactrim/Keflex vs Clinda/Doxy given hx DM. No hx MRSA so could opt for more pseudomonal coverage if desired. Allergy to PCN w/ rash 03/27 - Labs from AM pending. Did increase dosing for Cefepime/Dapto given improvement in renal function day prior. If stable/continued improvement on exam will plan for dc today - Did add procalcitonin to am labs for comparison to arrival, blood cultures remain NGTD >48hrs and patient has been afebrile (2) Acute kidney injury superimposed on CKD: Plan: Cr 2.28, CHUCK on CKD in setting of infection (Cr baseline 1.4-1.8, follows Dr Yates) IVF on admission, no further ordered and Cr to 1.52 w/ home lasix/spirnolactone on hold but resuming lasix as above to assist w/ edema/swelling and will monitor renal function in AM to see about resuming home spironolactone Renal dose meds/avoid nephrotoxins as able (3) Hypertension: Plan: Hypertension, has been varying as outpatient Recent rx for both amlodipine and diltiazem and amlodipine was discontinued lasix 20mg daily, spironolactone 25mg ON HOLD due to CHUCK as above Lasix 20mg PO daily resumed AM 03/26 -plan to resume spironolactone at 25mg in AM if stable renal function Hydralazine available prn Encouraged BP cuff at home/monitoring as prior discussed. If needing increased BP control as outpt, rec consideration to use hydralazine PO given CKD Monitor (4) Type 2 diabetes mellitus with chronic kidney disease, without long-term current use of insulin: Plan: DM2 Placed home glipizide on hold for now while inpatient BSG AC/HS, SSI while inpatient Dc lantus, tightened SSI and will monitor, most recent POC 191 (5) Stage 3a chronic kidney disease (CKD): Plan: as above, improving w/ holding diuretics and lasix to be resumed as above/monitor for spinorolactone (6) Melanoma in situ: Plan: has outpt f/u for exicion R shoulder per discussion w/ Dr ePrez next month Plan continued inpatient stay, hopeful dc AM 03/27 Admission and Anticipated Discharge Date Admission Date: March 23, 2024 Results & Data Results & Data Vital Signs (Past 12 Hours) Vital Signs Temp Pulse Pulse Resp BP BP Pulse Ox 03/27/24 07:33 66 03/27/24 06:35 36.9 C 75 20 184/61 H 96 03/27/24 05:24 169/78 H 73 L 03/27/24 04:57 37.0 C 72 20 179/66 H 96 03/27/24 00:00 65 03/26/24 23:18 36.7 C 70 20 182/75 H 99 O2 Del Method 03/27/24 07:33 03/27/24 06:35 Room Air 03/27/24 05:24 Room Air 03/27/24 04:57 Room Air 03/27/24 00:00 03/26/24 23:18 Room Air PG Care Time/CCT Total # of Minutes Spent Total Time Spent with Patient: Total time spent is greater than 50% in coordination of care (as documented) at patient's floor/unit and/or counseling patient: Coding Diagnoses Cellulitis of left lower extremity L03.116 Acute kidney injury superimposed on CKD N17.9; N18.9 Hypertension I10 Type 2 diabetes mellitus with chronic kidney disease, without long-term current use of insulin E11.22 Stage 3a chronic kidney disease (CKD) N18.31 Melanoma in situ D03.9
[2024-03-27 08:06] LABS: BUN Creatinine Ratio 26.4 (10-20); Calcium 9.6 mg/dl (8.6-10.3); Creatinine Clr Calc Pharmacy 33.5 ml/min; Est GFR (Non-African American) 34.5 ml/min; Magnesium 1.9 mg/dl (1.7-2.4); Potassium 4.2 mmol/L (3.5-5.1)
[2024-03-27] MEDS: ACETAMINOPHEN 325 MG TAB PO PRN (09:35)
[2024-03-27] MEDS: SPIRONOLACTONE 25 MG TAB PO SCH (10:07)
--- NOTE | 2024-03-27 10:51 | Discharge Summary ---
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 The patient was encouraged to come to the emergency department by family, when she reported rapid worsening of left lower extremity redness past 24 hours. Family reports that patient appeared to be a bit confused early on in this process, and she reports significant issues with fatigue as well. She denies any recent travels or sick exposures. She denies any tick or insect bites. She has had recent treatment by dermatology for concerning skin lesion on her left lower extremity, that are scabbed over Principal Diagnosis LEFT LOWER EXTREMITY CELLULITIS Discharge Exam General: 73yo female sitting up in bed, NAD, on the phone, in room, looks much better HEENT: head atraumatic, normocephalic, mmm Resp:even/unlabored, w/c/r, on room air CV: RRR, faint systolic murmur, LLE edema from cellulitis IMPROVING GI: +BS, soft/NT : no hanna MSK/Neuro/skin: nonfocal, no slurred speech, answering questions appropriately LLE w/ cellulitis-- SIGNIFICANT improvement since admission, much less warmth, no overt tenderness, erythema much improved upper thigh redness almost completely resolved, nontender several lesions, c/w AK, hx melanoma, recent cryotherapy on multiple lesions w/ dermatology outpatient Psych: AOx3, pleasant/cooperative with exam Discharge Data Allergies Allergy/AdvReac Type Severity Reaction Status Date / Time ampicillin Allergy Mild Rash Verified 03/17/24 10:21 Penicillins Allergy Mild RASH Verified 03/17/24 10:21 Consultations 03/23/24 23:54 ED Decision to Admit Stat Ordered Studies Venous Doppler Study 03/23/24 17:40 Exam(s): US VENOUS LEFT LOWER EXTREMITY EXAM: US Duplex Left Lower Extremity Veins CLINICAL HISTORY: Reason for exam: redness swelling leg into thigh. TECHNIQUE: Real-time duplex ultrasound scan of the left lower extremity veins integrating B-mode two-dimensional vascular structure, Doppler spectral analysis, color flow Doppler imaging and compression. COMPARISON: No relevant prior studies available. FINDINGS: Deep veins: Unremarkable. No DVT in the visualized common femoral, femoral, proximal deep femoral or popliteal veins. The veins demonstrate normal color flow, are normally compressible, with normal phasic flow and/or augmentation response. Superficial veins: Unremarkable. No thrombus in the visualized great saphenous vein. Soft tissues: No acute findings. No popliteal cyst. IMPRESSION: Normal left lower extremity duplex venous ultrasound. Electronically signed by: Jan Acuna MD 03/24/24 01:12 AM Hospital Course (1) Cellulitis of left lower extremity: Diabetic cellulitis of the left lower extremity, suspected 2nd to recent procedure/cryotherapy to lesions on her legs -- Outpt Derm note 03/06 noting 6 lesions treated with liquid nitrogen and advised to wash and apply vaseline to sites until healed.(has outpt excision scheduled for melanoma in situ on her right superior shoulder per discussion w/ Dr Perez today) LLE Cellulitis Elevated WBC 12k w/ procal to 12 on admission, also with CHUCK w/ Cigar Roller 2.28 (baseline 1.4-1.8, follows Dr Yates) Venous doppler NEGATIVE for DVT Dapto/Cefepime IV while inpatient (statin placed on hold) s/p 1500cc IVF on admission, lasix/spironolactone placed on hold for CHUCK WBC normalized, remained afebrile Blood cultures NGTD >48hours Did increase dosing for Cefepime/Dapto given improvement in renal and significant improvement on exam, procal down to 1.76 (again blood cultures NGTD and patient remained afebrile) and discussed with supervising provider and deci rafael to discharge on Doxy/Keflex to complete total 14 day course (along w/ rec for probiotic) to complete the course. Did discuss w/ patient as no prior hx pseudomonas but if any worsening erythema/redness/swelling/fever to return to ER and would need coverage for such. (2) Acute kidney injury superimposed on CKD: Cr 2.28, CHUCK on CKD in setting of infection. (Cr baseline 1.4-1.8, follows Dr Yates) IVF on admission, no further ordered and tolerating PO and held diuretics x 1 day and continued improvement in renal function w/ holding but improvement in PO intake and renal function and continued slight improvement w/ resumption of lasix and decision to resume her spironolactone prior to dc and f/u nephrology outpt as well as PCP (3) Hypertension: Hypertension, has been varying as outpatient Recent rx for both amlodipine and diltiazem and amlodipine was discontinued lasix 20mg daily, spironolactone 25mg ON HOLD due to CHUCK as above on admission and both resumed prior to discharge and BP 184/61 at in in hospital setting. Did discuss w/ patient about monitoring BP at home/cuff and taking to office to ensure not over treating but if elevated at home and needing additional agent would consider low dose hydralazine (4) Type 2 diabetes mellitus with chronic kidney disease, without long-term current use of insulin: DM2- on glipizide/Jardiance outpatient. Glipizide was continued on admission but then placed on hold. Did resume Jardiance to assist w/ diuretic effect/control issues and utilized sliding scale. A1c 8.8 from 8.1 in December and to resume glipizide at discharge. Rec continued discussion w/ PCP in follow up, consideration for once daily long acting insulin in f/u but remained fairly stable w/o significant elevations while inpatient (5) Stage 3a chronic kidney disease (CKD): Renal function back to baseline w/ resumption of diuretics/treatment of cellulitis and stayed stable even w/ increased dosing of abx for cellulitis continued f/u Dr Yates at in recommended (6) Melanoma in situ: has outpt f/u for exicion R shoulder per discussion w/ Dr Perez next month Plan discharged home w/ Total Time Total Time Spent Total Time Spent (In Minutes): 40 Discharge Plan Discharge Items Patient Disposition: Home - Self-Care Reason For Visit: LLE CELLULITIS Discharge Diagnosis: You have been hospitalized for an acute medical problem. During your stay at [facility], we have made an effort to correct the problem that brought you to the hospital while keeping you as comfortable as possible. Medications were used to bring your condition under control and your discharge instructions will include directions for any medications you should take after leaving the hospital. Please make sure you see your Primary Care Provider as part of your follow up plan. Condition on Discharge: Good Activity: As commented below Non-emergency contact: Primary Care Provider Call non-emergency contact if: you have any medication questions, your symptoms worsen, your pain is not controlled and you have a fever Follow-up/Referrals: Joan Benavides MD [Primary Care Provider] - 04/06/24 3:00 pm Diet: Carb Consistent or DM2 and Heart Healthy Addtl Attending Provider Instructions: You have been hospitalized for cellulitis of your left lower leg. I suspect this was likely due to recent procedure with dermatology for your lesions they froze and bacteria got into the skin opening. We treated you with IV antibiotics and held your diuretics initially but have been resumed given normalization of your kidney function back to baseline. As discussed, would continue current regimen and monitor your blood pressures at home and take the cuff to the office to ensure accurate readings and not overtreating blood pressures which have been pretty reasonable in the hospital. Regarding antibiotics at discharge, we are sending you on DOXYCYCLINE to take TW ICE DAILY as well as CEPHALEXIN 500mg by mouth four times daily for a total 14 days. You received IV while in the hospital and have another are going to send you on broad spectrum coverage given history of diabetes with CLINDAMYCIN and DOXYCYCLINE to complete 14 day course. You have another 10 days of treatment Monitor for any diarrhea as discussed and consider probiotic while on course of antibiotics but alert primary care of any increased diarrhea given risk for cdiff. Please monitor for any increased redness/pain/swelling or fevers to return to the ER or for any other symptoms concerning for you. It has been a pleasure being a part of the medical team providing for you while you have been in the hospital. Take care! Pending Studies at Discharge: Yes Studies:: Blood cultures -- NO GROWTH TO DATE Stand-Alone Forms: [facility] [employer], Smoking Cessation Medications and DC Order Prescriptions: New doxycycline hyclate 100 mg tablet 100 mg PO BID 10 Days Qty: 20 0RF cephalexin 500 mg capsule 500 mg PO Q6H 10 Days Qty: 40 0RF Continued Jardiance 10 mg tablet 10 mg PO DAILY Qty: 90 3RF clobetasol 0.05 % ointment 1 applic topical BID Qty: 30 0RF Rx Instructions: use for 2 weeks rosuvastatin 40 mg tablet 40 mg PO HS Qty: 90 3RF allopurinol 100 mg tablet 100 mg PO QAM Qty: 90 3RF glipizide 2.5 mg tablet extended release 24hr 2.5 mg PO DAILY Qty: 90 3RF Rx Instructions: Take 2.5 mg daily 30 minutes before first main meal of the day fenofibrate nanocrystallized 48 mg tablet 48 mg PO QAM Qty: 90 3RF levothyroxine 50 mcg tablet 50 mcg PO DAILY Qty: 90 3RF magnesium oxide 400 mg (241.3 mg magnesium) tablet 400 mg PO HS fluorouracil [Efudex] 5 % cream 1 applic topical DAILY 28 Days Qty: 40 2RF Rx Instructions: Apply to the affected areas on the left foot at night and wash off in the AM for 4 weeks. Apply vaseline after 4 weeks, until healed. paroxetine HCl 10 mg tablet 10 mg PO QAM Qty: 90 3RF spironolactone 25 mg tablet 25 mg PO DAILY atenolol 25 mg tablet 25 mg PO BID Qty: 60 2RF diltiazem HCl 360 mg capsule,extended release 24 hr 360 mg PO DAILY Qty: 30 0RF docusate sodium 100 mg Capsule 200 mg PO BID trazodone 50 mg tablet 25 mg PO HS furosemide 20 mg tablet 20 mg PO QAM No Action (DME) OneTouch Verio test strips Strip See Rx Instructions .Route Qty: 100 1RF Rx Instructions: Check blood sugar daily (DME) lancets [OneTouch Delica Plus Lancet] 33 gauge misc See Rx Instructions .Route Qty: 100 1RF Rx Instructions: Check blood sugar daily Discharge Orders: Discharge Order (Routine); Ordered 03/27/24 Ordered By: Charlette Almaguer Admission Data Admit Date/Time: 03/23/24 23:51 Attending Provider: Steve Yan Admit Provider: Emre Benites Primary Care Provider: Joan Benavides Other Providers: Emre Benites Other Interventions: Discharge Summary Assessment (RN) Last Done: 03/27/24 12:45 Supervising Physician Co-Signing Physician Notes The patient was not seen by me. The chart was reviewed. Case discussed with GARRY Pablo. Agree with assessment and plan Coding Level of Care Code 67640 INP/OBS DISCH >30 MIN Diagnoses Cellulitis of left lower extremity L03.116 Acute kidney injury superimposed on CKD N17.9; N18.9 Hypertension I10 Type 2 diabetes mellitus with chronic kidney disease, without long-term current use of insulin E11.22 Stage 3a chronic kidney disease (CKD) N18.31 Melanoma in situ D03.9
== END 2024-03-27 14:43 | disposition home or self-care (01) | DRG 863 ==
LOC: ED 17:20 → EDINP 23:51 → SUATTDRO 23:51 → 2W 03-24 00:34